=== PATIENT | female | born 1975 | race Two or more races ===

== ENCOUNTER 2020-11-19 12:01 | Emergency (ER) | payer BC, OTHER ==
[~2020-11-19] VITALS: Ht 167.6 cm; Wt 65.8 kg
[2020-11-19 14:27] VITALS: BP 113/56
== END 2020-11-19 15:16 | disposition home or self-care (01) ==
LOC: EDBD 12:01 → ER 12:01
DX: S16.1XXA Strain of muscle, fascia and tendon at neck level, initial encounter (principal); S40.021A Contusion of right upper arm, initial encounter; E11.9 Type 2 diabetes mellitus without complications; Z96.643 Presence of artificial hip joint, bilateral; V49.59XA Passenger injured in collision with other motor vehicles in traffic accident, initial encounter; Y93.89 Activity, other specified; Y92.488 Other paved roadways as the place of occurrence of the external cause; Y99.8 Other external cause status
CPT/HCPCS: 72040; 73070